=== PATIENT | female | born 1955 | race African-American/Black ===

== ENCOUNTER 2020-01-23 08:03 | Inpatient (IN) | payer BC ==
[~2020-01-23] VITALS: Ht 167.6 cm; Wt 151.0 kg
[~2020-01-23 08:03] MED LIST: ASCO-339 PO; FERR325T6 PO; LACT1CAP56 PO; LOSA50TA41 PO; METF-815 PO; OMEP40CA12 PO; SUCR1TAB30 PO
[2020-01-23] MEDS ORDERED: LABETALOL 5MG/ML SYR 20 MG/4 ML SYRINGE IV ONE (08:15)
[2020-01-23 09:28] LABS: BASOPHILS % 0.2 % (0.0-2.0); EOSINOPHILS % 0.5 % (0.0-5.0); HEMATOCRIT. 36.4 % (36.0-48.0); HEMOGLOBIN. 12.1 g/dL (12.0-16.0); LYMPHOCYTES % 8.2 % (20.0-50.0); MEAN CORPUSCULAR HEMOGLOBIN 26.5 pg (28.0-32.0); MEAN CORPUSCULAR VOLUME 79.6 fL (81.0-99.0); MEAN PLATELET VOLUME 9.2 fl (7.4-10.4); MONOCYTES % 3.5 % (2.0-8.0); NEUTROPHILS % 87.6 % (40.0-76.0); PLATELET 213 x1000/uL (130-400); RED BLOOD CELL COUNT 4.57 mill/uL (4.2-5.4)
[2020-01-23 09:33] LABS: CLARITY URINE CLEAR (CLEAR); COLOR URINE YELLOW (YELLOW); KETONES URINE 1+ (NEGATIVE); LEUKOCYTE ESTERASE URINE 3+ (NEGATIVE); NITRITE URINE NEGATIVE (NEGATIVE); OCCULT BLOOD URINE TRACE (NEGATIVE); PH URINE 6.5 (4.5-8.0); PROTEIN URINE NEGATIVE (NEGATIVE); SPECIFIC GRAVITY URINE 1.011 (1.005-1.030); UROBILINOGEN URINE 0.2 E.U./dL (0.2-1.0)
[2020-01-23 09:34] LABS: CHLORIDE 104 mEq/L (98-107)
[2020-01-23 09:38] LABS: ETHANOL BLOOD < 10 mg/dL
[2020-01-23 10:09] LABS: *AMPHETAMINES SCREEN URINE NEGATIVE (NEGATIVE); *BARBITURATES SCREEN URINE NEGATIVE (NEGATIVE); *BENZODIAZEPINES SCREEN URINE NEGATIVE (NEGATIVE); CANNABINOID URINE SCREEN NEGATIVE (NEGATIVE)
[2020-01-23 10:11] LABS: *COCAINE SCREEN URINE NEGATIVE (NEGATIVE); METHADONE URINE SCREEN NEGATIVE (NEGATIVE); OPIATES URINE SCREEN NEGATIVE (NEGATIVE); PHENCYCLIDINE URINE SCREEN NEGATIVE (NEGATIVE)
[2020-01-23] MEDS ORDERED: CEFTRIAXONE 1 G PREMIX 50 ML IV ONE (14:15)
[2020-01-23] MEDS ORDERED: IPRATROPIUM/ALBUTEROL 0.5-3(2.5)MG/3ML NEB HHN PRN (16:00)
[2020-01-23] MEDS ORDERED: ASPIRIN 81MG TABLET PO NR (16:00)
[2020-01-23] MEDS ORDERED: LORAZEPAM 0.5MG TABLET PO PRN (16:00)
[2020-01-23] MEDS ORDERED: POTASSIUM CHLORIDE 20MEQ TABLET SR PO NR (16:00)
[2020-01-23] MEDS ORDERED: ONDANSETRON HCL 4MG/2ML INJ IV PRN (16:00)
[2020-01-23] MEDS ORDERED: HYDROCODONE/ACETAMINOPHEN 5/325MG TABLET PO PRN (16:00)
[2020-01-23] MEDS: LABETALOL 5MG/ML SYR 20 MG/4 ML SYRINGE IV PRN ×2 (16:50→20:02)
[2020-01-23] MEDS: PANTOPRAZOLE 40MG DR TABLET PO SCH (17:28)
[2020-01-23 23:58] VITALS: BP 170/92
[2020-01-24] VITALS (7 sets, daily range): BP systolic 170–206; BP diastolic 87–95
[2020-01-24] MEDS ORDERED: DEXTROSE 50% WATER 50ML SYRINGE IV PRN (05:00)
[2020-01-24] MEDS: SUCRALFATE 1G TABLET PO SCH ×3 (05:52→20:47)
[2020-01-24] MEDS: PANTOPRAZOLE 40MG DR TABLET PO SCH (05:52)
[2020-01-24] MEDS: BLOOD SUGAR DIAGNOSTIC STRIP TEST SCH ×4 (05:53→20:57)
[2020-01-24] MEDS: LABETALOL 5MG/ML SYR 20 MG/4 ML SYRINGE IV PRN ×2 (06:04→12:47)
[2020-01-24] MEDS: INSULIN LISPRO 100 UNITS/ML SUBCUT SCH ×4 (07:15→20:58)
[2020-01-24] MEDS ORDERED: LOSARTAN POTASSIUM 50 MG TABLET PO SCH (09:00)
[2020-01-24] MEDS ORDERED: LORAZEPAM 2MG/ML CPJ IV PRN (13:30)
[2020-01-24] MEDS ORDERED: ENOXAPARIN 40MG/0.4ML SYR SUBCUT SCH (14:30)
[2020-01-24 15:41] LABS: BASOPHILS % 0.2 % (0.0-2.0); EOSINOPHILS % 1.8 % (0.0-5.0); HEMATOCRIT. 37.3 % (36.0-48.0); HEMOGLOBIN. 12.4 g/dL (12.0-16.0); LYMPHOCYTES % 12.8 % (20.0-50.0); MEAN CORPUSCULAR HEMOGLOBIN 26.4 pg (28.0-32.0); MEAN CORPUSCULAR VOLUME 79.4 fL (81.0-99.0); MEAN PLATELET VOLUME 9.6 fl (7.4-10.4); MONOCYTES % 5.1 % (2.0-8.0); NEUTROPHILS % 80.1 % (40.0-76.0); PLATELET 243 x1000/uL (130-400); RED BLOOD CELL COUNT 4.69 mill/uL (4.2-5.4); RED CELL DISTRIBUTION WIDTH 15.9 % (11.6-14.6)
[2020-01-24] MEDS: AMLODIPINE 5MG TABLET PO SCH (15:41)
[2020-01-24 15:49] LABS: CHLORIDE 104 mEq/L (98-107)
[2020-01-24] MEDS: ENOXAPARIN 40MG/0.4ML SYR SUBCUT SCH (20:47)
[2020-01-24] MEDS: CLOPIDOGREL 75MG TABLET PO SCH (20:47)
[2020-01-24] MEDS: ASPIRIN 81MG TABLET PO SCH (20:47)
[2020-01-24] MEDS: ATORVASTATIN CALCIUM 40MG TABLET PO SCH (20:47)
[2020-01-24] MEDS: FAMOTIDINE 20MG TABLET PO SCH (20:54)
[2020-01-25] VITALS: BP 158/98
[2020-01-25 04:00] VITALS: BP 159/98
[2020-01-25] MEDS: SUCRALFATE 1G TABLET PO SCH ×2 (05:15→21:11)
[2020-01-25] MEDS: INSULIN LISPRO 100 UNITS/ML SUBCUT SCH ×4 (05:51→21:13)
[2020-01-25] MEDS: BLOOD SUGAR DIAGNOSTIC STRIP TEST SCH ×4 (05:51→21:14)
[2020-01-25 08:21] LABS: CHLORIDE 108 mEq/L (98-107)
[2020-01-25] MEDS ORDERED: LOSARTAN POTASSIUM 100 MG TABLET PO SCH (09:00)
[2020-01-25 09:38] LABS: BASOPHILS % 0.4 % (0.0-2.0); EOSINOPHILS % 2.3 % (0.0-5.0); HEMATOCRIT. 38.7 % (36.0-48.0); HEMOGLOBIN. 12.7 g/dL (12.0-16.0); LYMPHOCYTES % 15.2 % (20.0-50.0); MEAN CORPUSCULAR HEMOGLOBIN 26.3 pg (28.0-32.0); MEAN CORPUSCULAR VOLUME 80.2 fL (81.0-99.0); MEAN PLATELET VOLUME 9.5 fl (7.4-10.4); MONOCYTES % 5.4 % (2.0-8.0); NEUTROPHILS % 76.7 % (40.0-76.0); PLATELET 232 x1000/uL (130-400); RED BLOOD CELL COUNT 4.82 mill/uL (4.2-5.4); RED CELL DISTRIBUTION WIDTH 15.8 % (11.6-14.6)
[2020-01-25] MEDS: ENOXAPARIN 40MG/0.4ML SYR SUBCUT SCH ×2 (10:11→21:11)
[2020-01-25] MEDS: ASPIRIN 81MG TABLET PO SCH (10:11)
[2020-01-25] MEDS: AMLODIPINE 5MG TABLET PO SCH (10:11)
[2020-01-25] MEDS: LOSARTAN POTASSIUM 50 MG TABLET PO SCH (10:11)
[2020-01-25] MEDS: FAMOTIDINE 20MG TABLET PO SCH ×2 (10:11→21:11)
[2020-01-25] MEDS: CLOPIDOGREL 75MG TABLET PO SCH (10:12)
[2020-01-25] MEDS ORDERED: LOSA100T32 MT (10:49)
[2020-01-25] MEDS ORDERED: AMLO5TAB88 PO (10:49)
[2020-01-25] MEDS ORDERED: CLOP75TA4 MT (10:49)
[2020-01-25] MEDS ORDERED: ASPI-1160 PO (10:49)
[2020-01-25] MEDS ORDERED: ATOR40TA70 MT (10:49)
[2020-01-25 12:00] VITALS: BP 184/96
[2020-01-25 16:00] VITALS: BP 193/91
[2020-01-25] MEDS: LABETALOL 5MG/ML SYR 20 MG/4 ML SYRINGE IV PRN (17:14)
[2020-01-25] MEDS ORDERED: HYDRALAZINE HCL 50MG TABLET PO NR (17:19)
[2020-01-25] MEDS ORDERED: HYDR-4135 MT (19:59)
[2020-01-25] MEDS: ATORVASTATIN CALCIUM 40MG TABLET PO SCH (21:11)
[2020-01-25 21:20] VITALS: BP 182/82
[2020-01-26] VITALS: BP 209/108
[2020-01-26] MEDS: LABETALOL 5MG/ML SYR 20 MG/4 ML SYRINGE IV PRN ×3 (00:36→14:12)
[2020-01-26 04:00] VITALS: BP 179/95
[2020-01-26] MEDS: INSULIN LISPRO 100 UNITS/ML SUBCUT SCH ×2 (05:52→11:44)
[2020-01-26] MEDS: BLOOD SUGAR DIAGNOSTIC STRIP TEST SCH ×2 (05:52→11:44)
[2020-01-26] MEDS: SUCRALFATE 1G TABLET PO SCH (06:19)
[2020-01-26 08:00] VITALS: BP 186/75
[2020-01-26] MEDS: ASPIRIN 81MG TABLET PO SCH (09:04)
[2020-01-26] MEDS: CLOPIDOGREL 75MG TABLET PO SCH (09:04)
[2020-01-26] MEDS: FAMOTIDINE 20MG TABLET PO SCH (09:04)
[2020-01-26] MEDS: AMLODIPINE 5MG TABLET PO SCH (09:04)
[2020-01-26] MEDS: LOSARTAN POTASSIUM 50 MG TABLET PO SCH (09:04)
[2020-01-26] MEDS: ENOXAPARIN 40MG/0.4ML SYR SUBCUT SCH (09:04)
[2020-01-26] MEDS ORDERED: OLME1TAB46 PO (11:14)
[2020-01-26] MEDS ORDERED: HYDR-4001 MT (11:24)
[2020-01-26 12:32] VITALS: BP 176/96
[2020-01-26 14:48] VITALS: BP 166/87
[2020-01-26 14:51] VITALS: BP 166/87
== END 2020-01-26 14:45 | disposition home or self-care (01) | DRG 65 ==
LOC: ER 08:03 → 5WST 12:00 → EDBEDREQ 12:03 → ENRESERV 19:57 → 5WST 23:37
PROVIDERS: ADMIT Internal Medicine; ATTEND Internal Medicine
DX: I63.532 Cerebral infarction due to unspecified occlusion or stenosis of left posterior cerebral artery (principal); I16.1 Hypertensive emergency; N39.0 Urinary tract infection, site not specified; Z68.43 Body mass index [BMI] 50.0-59.9, adult; E11.65 Type 2 diabetes mellitus with hyperglycemia; E87.6 Hypokalemia; E11.51 Type 2 diabetes mellitus with diabetic peripheral angiopathy without gangrene; D72.810 Lymphocytopenia; I10 Essential (primary) hypertension; E78.5 Hyperlipidemia, unspecified; E66.01 Morbid (severe) obesity due to excess calories; I45.81 Long QT syndrome; Z79.02 Long term (current) use of antithrombotics/antiplatelets; Z86.73 Personal history of transient ischemic attack (TIA), and cerebral infarction without residual deficits; Z79.84 Long term (current) use of oral hypoglycemic drugs; Z79.899 Other long term (current) drug therapy
CPT/HCPCS: 36415; 70544; 70553; 71045; 80048; 80053; 80061; 80305; 80320; 81003; 82962; 83036; 83880; 84484; 85025; 92610; 93005; 93880; 93970; 99285; J0696; J1650; J1815; J2060; J3490; G0480